=== PATIENT | female | born 1985 | race Caucasian/White ===

== ENCOUNTER 2019-01-11 18:29 | Emergency (ER) | payer OTHER ==
[~2019-01-11] VITALS: Ht 167.6 cm; Wt 70.8 kg
== END 2019-01-11 20:09 | disposition home or self-care (01) ==
LOC: ER 18:29
DX: M43.6 Torticollis (principal); M54.2 Cervicalgia

== ENCOUNTER 2019-03-24 08:37 | Outpatient (CLI) | payer OTHER ==
[2019-03-24] MEDS ORDERED: MULTI-VITAMIN1 EACH PO (11:06)
== END 2019-03-24 08:59 | disposition home or self-care (01) ==
LOC: LAB 08:37
DX: D64.89 Other specified anemias (principal); R79.89 Other specified abnormal findings of blood chemistry; Z32.01 Encounter for pregnancy test, result positive; R79.1 Abnormal coagulation profile; N39.0 Urinary tract infection, site not specified; R10.2 Pelvic and perineal pain